=== PATIENT | male | born 1940 | race Caucasian/White ===

== ENCOUNTER → 2017-11-20 | Outpatient (CLI) | payer MEDICARE, OTHER ==
[~2017-11-20] MED LIST: PRESERVISION1 SGL PO
== END ==
LOC: COL.VAS 09:00
DX: M79.89 Other specified soft tissue disorders (principal); R93.8 Abnormal findings on diagnostic imaging of other specified body structures

== ENCOUNTER → 2019-03-04 | Outpatient (CLI) | payer MEDICARE, OTHER | LOC: COL.RAD 08:17 | DX: K82.8 Other specified diseases of gallbladder (principal); Z98.890 Other specified postprocedural states | CPT/HCPCS: Q9967 ==

== ENCOUNTER 2020-02-27 17:34 | Inpatient (IN) | payer MEDICARE, OTHER ==
[2020-02-27] VITALS (21 sets, daily range): BP systolic 127; BP diastolic 68; PULSE 73; TEMP 98.1; O2SAT 87–100
[~2020-02-27] VITALS: Ht 177.8 cm; Wt 84.0 kg
[2020-02-27 18:18] LABS: HEMATOCRIT 45.2 % (42.0-52.0); HEMOGLOBIN 15.2 g/dl (13.5-18.0); MEAN CELL VOLUME 95 fl (80.0-100.0); MEAN CORPUSCULAR HEMOGLOBIN 32 pg (27.0-31.0); MEAN CORPUSCULAR HGB CONC 34 g/dl (33.0-37.0); MEAN PLATELET VOLUME 9.6 fl (7.4-10.4); PLATELET COUNT 228 K/mm3 (130-400); RED BLOOD COUNT 4.77 M/mm3 (4.20-5.60); REDCELL DISTRIBUTION WIDTH-CV 13.2 % (11.5-14.5)
[2020-02-27 18:27] LABS: ALBUMIN 3.6 gm/dL (3.5-5.0); C-REACTIVE PROTEIN 5.5 mg/dL (0.0-0.9); CALCIUM 8.3 mg/dL (8.4-10.2); CREATININE, serum 1.44 (0.66-1.25); POTASSIUM 4.3 mmol/L (3.4-5.0); TOTAL PROTEIN 6.9 gm/dL (6.4-8.2)
[2020-02-27 18:35] LABS: BAND 15 % (0-10); LYMPHOCYTE 11 % (20.0-51.0); MYELOCYTE 5 % (0-0); NEUTROPHILS 65 % (42.0-75.2); NUCLEATED RED BLOOD CELL 1 (0-6)
[2020-02-27 18:36] LABS: PLATELET ESTIMATE NORMAL (NORMAL); TROPONIN-I 0.015 ng/mL (0.000-0.035)
[2020-02-27 18:49] LABS: ARTERIAL BLD GAS O2 SATURATION 92.8 % (92-100); ARTERIAL BLD GAS TCO2 CT 24.1; ARTERIAL BLOOD GAS BASE EXCESS -0.5 (-2-2); ARTERIAL BLOOD GAS PCO2 34.7 mmHg (35-45); ARTERIAL BLOOD GAS PO2 66.2 mmHg (80-100); ARTERIAL BLOOD GAS pH 7.44 (7.35-7.45)
[2020-02-27] MEDS ORDERED: LOPRESSOR 225 MG/TAB PO (19:01)
[2020-02-27] MEDS ORDERED: PROTONIX 40MG T40 MG PO (19:02)
[2020-02-27] MEDS ORDERED: ASPIRIN 81M81 MG/TA2 PO (19:03)
--- NOTE | 2020-02-27 20:08 | NUR ---
PT ARRIVED TO UNIT ACCOMPANIED BY ER NURSE AND WAS TRANSPORTED VIA STRETCHER. PT PLACED ON AIRVO AND ATTACHED TO CRM MONITOR ON ADMIT. DENIES SOA. ORIENTED TO UNIT AND POLICIES. WILL CONTINUE TO MONITOR.
[2020-02-27] MEDS ORDERED: DOXYCYCLINE HY100 MG PO (20:49)
[2020-02-27] MEDS ORDERED: PRESERVISION AREDS 2 PO (20:53)
[2020-02-27 21:20] LABS: INR 1.4 (0.8-3.0); PROTHROMBIN TIME 15.4 SECONDS (9.7-12.8)
[2020-02-27 21:23] LABS: PARTIAL THROMBOPLASTIN TIME 36.5 SECONDS (26.0-37.0)
[2020-02-27 22:17] LABS: ARTERIAL BLD GAS O2 SATURATION 87.3 % (92-100); ARTERIAL BLD GAS TCO2 CT 26.4; ARTERIAL BLOOD GAS BASE EXCESS 1.1 (-2-2); ARTERIAL BLOOD GAS HCO3 25.2 meq/L (22-26); ARTERIAL BLOOD GAS PCO2 38.6 mmHg (35-45); ARTERIAL BLOOD GAS PO2 53.2 mmHg (80-100); ARTERIAL BLOOD GAS pH 7.43 (7.35-7.45)
[2020-02-28] VITALS (710 sets, daily range): BP systolic 91–114; BP diastolic 50–65; PULSE 65–83; TEMP 97.7–98.7; O2SAT 65–100
[2020-02-28 01:43] LABS: ARTERIAL BLD GAS O2 SATURATION 98.8 % (92-100); ARTERIAL BLD GAS TCO2 CT 22.4; ARTERIAL BLOOD GAS BASE EXCESS -1.1 (-2-2); ARTERIAL BLOOD GAS HCO3 21.4 meq/L (22-26); ARTERIAL BLOOD GAS PCO2 30.2 mmHg (35-45); ARTERIAL BLOOD GAS PO2 132.1 mmHg (80-100); ARTERIAL BLOOD GAS pH 7.47 (7.35-7.45)
[2020-02-28 02:41] LABS: COLLECTION METHOD CLEAN CATCH
--- NOTE | 2020-02-28 02:41 | NUR ---
PT DNR/DNI DOUBLE VERIFIED BY THIS RN AND YUMIKO CHISHOLM AT BEDSIDE.
[2020-02-28 03:08] LABS: MUCOUS Present /lpf; PH 6 (5-8); SQUAMOUS EPITHELIAL 0-2 /hpf; URINE APPEARANCE Hazy; URINE BACTERIA None Seen /hpf; URINE BILIRUBIN Negative (NEGATIVE); URINE BLOOD Negative (NEGATIVE); URINE COLOR Amber; URINE GLUCOSE Negative (NEGATIVE); URINE KETONE Negative (NEGATIVE); URINE LEUKOCYTE ESTERASE Negative (NEGATIVE); URINE NITRATE Negative (NEGATIVE); URINE PROTEIN(semi-quant) 2+ (NEGATIVE); URINE RBC 0-2 /hpf
[2020-02-28 05:50] LABS: HEMATOCRIT 40.1 % (42.0-52.0); HEMOGLOBIN 13.5 g/dl (13.5-18.0); MEAN CELL VOLUME 96 fl (80.0-100.0); MEAN CORPUSCULAR HEMOGLOBIN 32 pg (27.0-31.0); MEAN CORPUSCULAR HGB CONC 34 g/dl (33.0-37.0); MEAN PLATELET VOLUME 9.9 fl (7.4-10.4); PLATELET COUNT 216 K/mm3 (130-400); REDCELL DISTRIBUTION WIDTH-CV 13.6 % (11.5-14.5)
[2020-02-28 05:51] LABS: CALCIUM 7.7 mg/dL (8.4-10.2); CREATININE, serum 1.2 (0.66-1.25); POTASSIUM 4.6 mmol/L (3.4-5.0)
[2020-02-28 06:10] LABS: ARTERIAL BLD GAS O2 SATURATION 95.2 % (92-100); ARTERIAL BLD GAS TCO2 CT 24.5; ARTERIAL BLOOD GAS BASE EXCESS 0.4 (-2-2); ARTERIAL BLOOD GAS HCO3 23.4 meq/L (22-26); ARTERIAL BLOOD GAS PCO2 33.8 mmHg (35-45); ARTERIAL BLOOD GAS PO2 74.3 mmHg (80-100); ARTERIAL BLOOD GAS pH 7.46 (7.35-7.45)
[2020-02-28 06:17] LABS: BAND 12 % (0-10); EOSINOPHIL 1 % (0-4); LYMPHOCYTE 72 % (20.0-51.0); NEUTROPHILS 1 % (42.0-75.2); PLATELET ESTIMATE NORMAL (NORMAL)
--- NOTE | 2020-02-28 10:12 | NUR ---
UPDATE GIVEN TO , JOYCE, AT THIS TIME.
--- NOTE | 2020-02-28 13:56 | NUR ---
The patient is positive for COVID. SW contacted the patient's , Melba (ph#[phone]), to discuss discharge plan. The patient lives in [place] with his . Melba reports that the patient is independent with ADLs and does not have any DME. The patient's PCP is Dr. Sumit [facility] and he receives his medications from [facility]. Melba reports no difficulties obtaining his meds. The patient does not have a DPOA-HC in EMR, but Melba states that the patient does have one completed and that she is the patient's DPOA-HC. The patient is on a bipap right now. SW to continue to follow.
--- NOTE | 2020-02-28 14:25 | NUR ---
Chaplain muro for patient while standing at outside the door.
--- NOTE | 2020-02-28 19:05 | NUR ---
Received report from YUMIKO Cooper.
--- NOTE | 2020-02-28 21:00 | NUR ---
Patient resting quietly in bed. Wearing AirVo, receiving 50L and 88% FiO2; tolerating well. Denies any pain or discomfort. Vitals within normal limits, although patient quickly desats to mid-high 80s with activity or talking. , Mario, phoned while in room and spoke with patient. No further needs noted at this time. Will continue to monitor.
[2020-02-29] VITALS (972 sets, daily range): BP systolic 106–126; BP diastolic 59–80; PULSE 63–87; TEMP 97–98.6; O2SAT 60–100
[2020-02-29 05:07] LABS: HEMATOCRIT 40.7 % (42.0-52.0); HEMOGLOBIN 13.6 g/dl (13.5-18.0); MEAN CELL VOLUME 95 fl (80.0-100.0); MEAN CORPUSCULAR HEMOGLOBIN 32 pg (27.0-31.0); MEAN CORPUSCULAR HGB CONC 33 g/dl (33.0-37.0); MEAN PLATELET VOLUME 9.8 fl (7.4-10.4); PLATELET COUNT 261 K/mm3 (130-400); REDCELL DISTRIBUTION WIDTH-CV 13.5 % (11.5-14.5)
[2020-02-29 05:27] LABS: CALCIUM 7.6 mg/dL (8.4-10.2); CREATININE, serum 0.95 (0.66-1.25); POTASSIUM 4.1 mmol/L (3.4-5.0)
[2020-02-29 05:49] LABS: BAND 4 % (0-10); LYMPHOCYTE 9 % (20.0-51.0); NEUTROPHILS 85 % (42.0-75.2); PLATELET ESTIMATE NORMAL (NORMAL)
--- NOTE | 2020-02-29 07:19 | NUR ---
REPORT GIVEN TO YUMIKO STALLINGS.
--- NOTE | 2020-02-29 08:00 | NUR ---
PATIENT PLACED ON AIRVO AT THIS TIME. HE IS ON 90% FIO2 AND 50 L FLOW.
--- NOTE | 2020-02-29 10:00 | NUR ---
PATIENT IS HELPED TO THE COMMODE, HIS SP02 DROPS TO 63%. HE IS REMINDED TO BREATHE THROUGH HIS NOSE, HE IS CURRENTLY MOUTH-BREATHING. HE IS SHORT OF BREATH WITH EXERTION.
--- NOTE | 2020-02-29 10:00 | NUR ---
PATIENT AIRVO DECREASED TO 85% FI02
--- NOTE | 2020-02-29 11:00 | NUR ---
UPDATE GIVEN TO LIZBETH JOHN.
--- NOTE | 2020-02-29 13:00 | NUR ---
UPDATE GIVEN TO , DORA
--- NOTE | 2020-02-29 16:00 | NUR ---
PATIENT FOUND OUT OF BED AND TANGLED IN MONITOR CORDS. HE IS TRYING TO USE COMMODE. HE IS REMINDED TO CALL FOR HELP SO HE DOESN'T FALL. HE STATES THAT HE CAN DO IT BY HIMSELF. I REMIND HIM THAT HE IS CURRENTLY TANGLED AND AT HIGH RISK FOR FALLING. HE AGREES TO CALL FOR HELP IN FUTURE.
--- NOTE | 2020-02-29 16:15 | NUR ---
WHILE PATIENT IS OUT OF BED, HIS SPO2 DROPS TO 70%S WITH EXERTION. HE IS REMINDED TO BREATHE THROUGH HIS NOSE, HE IS CURRENTLY BREATHING THROUGH HIS MOUTH.
--- NOTE | 2020-02-29 19:30 | NUR ---
REPORT GIVEN TO YUMIKO MAO
[2020-03-01] VITALS (792 sets, daily range): BP systolic 102–125; BP diastolic 57–71; PULSE 56–81; TEMP 97–97.5; O2SAT 50–100
[2020-03-01 05:41] LABS: HEMOGLOBIN 12.4 g/dl (13.5-18.0); MEAN CELL VOLUME 94 fl (80.0-100.0); MEAN CORPUSCULAR HEMOGLOBIN 32 pg (27.0-31.0); MEAN CORPUSCULAR HGB CONC 34 g/dl (33.0-37.0); PLATELET COUNT 282 K/mm3 (130-400); RED BLOOD COUNT 3.92 M/mm3 (4.20-5.60); REDCELL DISTRIBUTION WIDTH-CV 13.6 % (11.5-14.5)
[2020-03-01 05:57] LABS: ALBUMIN 2.7 gm/dL (3.5-5.0); BILIRUBIN,TOTAL 0.5 mg/dL (0.0-1.0); CALCIUM 7.8 mg/dL (8.4-10.2); CREATININE, serum 0.79 (0.66-1.25); POTASSIUM 4.3 mmol/L (3.4-5.0); TOTAL PROTEIN 5.5 gm/dL (6.4-8.2)
[2020-03-01 06:06] LABS: BAND 18 % (0-10); LYMPHOCYTE 3 % (20.0-51.0); NEUTROPHILS 71 % (42.0-75.2); PLATELET ESTIMATE NORMAL (NORMAL)
--- NOTE | 2020-03-01 10:02 | NUR ---
The patient remains on 60 liters of oxygen, via high flow cannula. SW asked the hospitalist for PT/OT to be ordered. SW to continue to follow.
--- NOTE | 2020-03-01 11:11 | NUR ---
DR. CAMARENA IN TO SEE PATIENT. UPDATED GIVEN TO , DORA.
--- NOTE | 2020-03-01 19:08 | NUR ---
REPORT GIVEN YUMIKO HKAN. PLAN OF CARE DISCUSSED. CARE TURNED OVER AT THIS TIME.
--- NOTE | 2020-03-01 19:45 | NUR ---
Assessment complete; patient reports shortness of breath with exertion but denies at rest. Denies any pain at this time. Patient is alert and oriented and does not appear to be in any distress during assessment. Discussed changing from Air-Vo to BIPAP when ready for bed; patient agreeable with this. Will continue to monitor; call light left within reach.
--- NOTE | 2020-03-01 21:15 | NUR ---
Patient de-saturating on Air vo to mid 80's. RT notified and currently at bedside. Placed on BIPAP at this time; 02 94% on BIPAP.
--- NOTE | 2020-03-01 23:20 | NUR ---
Patient called to request to take off the BIPAP for the night. Discussed with patient that we could try a break from the BIPAP but it would need to go back on during the night. Patient agreed to this. Stayed in room to monitor patient for several minutes. 02 86-89% on Air-V0 60L and 95%. Discussed with RT and will place oxymask at 15L over the Air-vo as patient tends to breath through the mouth. O2 90-92% at this time. Will continue to monitor.
[2020-03-02] VITALS (367 sets, daily range): BP systolic 113–147; BP diastolic 60–98; PULSE 62–92; TEMP 97.4–98.3; O2SAT 66–100
--- NOTE | 2020-03-02 00:16 | NUR ---
PT WAS ON AIRVO AND OXYMASK COMBINATION. SATURATIONS WERE DROPPING DOWN INTO THE LOW 80'S. THEREFORE PT WAS PLACED BACK ON BIPAP WHERE PT SATURATIONS WERE MAINTINING IN THE MID 80'S. THEREFORE, FI02 WAS INCREASED TO 100% WITH SATURATIONS STILL MAINTING IN THE 86-87%. THEREFORE SETTINGS WERE CHANGED BY TO 22/01 AND THE MASK WAS RE-AJUSTED AND SATURATIONS WERE IN THE LOW 90'S OF 90% TO 92%. PT DENIES BEING SHORT OF BREATH OR FEELING AIR HUNGRY. WILL CONTINUE TO MONIOR AND ASSES PT AND TITRATE BIPAP SETTINGS AND FI02 TOLERATED BY PATIENT.
--- NOTE | 2020-03-02 00:45 | NUR ---
02 low 80's on Air-vo with supplemental o2 via oxymask. RT at bedside and changed back to BIPAP. Patient denies increased work of breathing. RT increased settings to 16/11 and 100% FIO2. Will continue to monitor.
--- NOTE | 2020-03-02 06:00 | NUR ---
PATIENT REQUSTING TO TAKE A BREAK FROM THE BIPAP. 02 READING MID 80'S AFTER REMOVING BIPAP. PATIENT DENIES FEELING INCREASED WORK OF BREATHING AND REPORTS FEELING "BETTER" WITHOUT BIPAP. PROBE SWITCHED FROM FINGER TO FOREHEAD. READING 95-100% ON 60L 93% AIR-VO. WILL CONTINUE TO MONITOR.
[2020-03-02 06:20] LABS: HEMATOCRIT 40.5 % (42.0-52.0); HEMOGLOBIN 13.8 g/dl (13.5-18.0); MEAN CELL VOLUME 96 fl (80.0-100.0); MEAN CORPUSCULAR HEMOGLOBIN 33 pg (27.0-31.0); MEAN CORPUSCULAR HGB CONC 34 g/dl (33.0-37.0); PLATELET COUNT 318 K/mm3 (130-400); RED BLOOD COUNT 4.24 M/mm3 (4.20-5.60)
[2020-03-02 06:29] LABS: CALCIUM 8.2 mg/dL (8.4-10.2); CREATININE, serum 0.7 (0.66-1.25); POTASSIUM 4.3 mmol/L (3.4-5.0)
--- NOTE | 2020-03-02 07:15 | NUR ---
Report given to YUMIKO Chen. Patient care transfered.
[2020-03-02 07:23] LABS: BAND 13 % (0-10); LYMPHOCYTE 6 % (20.0-51.0); MYELOCYTE 1 % (0-0); NEUTROPHILS 78 % (42.0-75.2); PLATELET ESTIMATE NORMAL (NORMAL)
--- NOTE | 2020-03-02 14:00 | NUR ---
PATIENT ADMITED INTO ROOM 353 FROM ICU WITH RESPIRATORY FAILURE. PATIENT IS POSITIVE FOR COVID AND REQUIRING AIRVO DURING THE DAY AND BI-PAP AT HS. UPON ENTERING THE ROOM, PATIENT WAS SOA AND NOTED OXYGEN SAT OF 73% VIA OXY-MASK DURING ICU TRANSFER. PATIENT TOOK A WHILE TO RECOVER. SATS NOW AT 90% ON AIRVO 60L AFTER 15 MINUTES. A&P LUNG VALENCIA NOTED CRACKLES WITH DEMINISHED BASES. PATIENT IS A FORMER SMOKER. NEURO CHECKS Q4H. VITAL ARE NOW STABLE. TELE INPLACE WITH HR IN 90'S. DNR. PATIENT IS ON ISOLATION PRECAUTIONS FOR COVID. HEAD TO TOE ASSESSMENT COMPLETE. ORIENTED TO ROOM. CALL LIGHT IN REACH. PATIENT PROVIDED WATER AT BEDSIDE, WITH 1500 FLUID RESTRICTION NOTED. RIGHT UPPER ARM PICC LINE INPLACE AND TO INT. RED PORT DOES NOT FLUSH. GAVE CATHFLOW ORDERED IN ICU. WILL MONITOR
--- NOTE | 2020-03-02 14:28 | NUR ---
unable to flush pt's red port to right upper arm PICC. notified Dr. Candelario, cath anuj ordered. contacted pharmacy to have verified and states it will be approx 1hr before ready. pt transported to room 353 on 15L oxymask in airborn precautions with telemetry. reported to YUMIKO Jarrell at bedside of approx when cath anuj will be ready.
--- NOTE | 2020-03-03 00:45 | NUR ---
NURSE CALLED, PT WANTS TO TAKE BIPAP OFF. WHEN PT WAS SWITCHED TO AIRVO AT 85% AND 60 LPM HIS SPO2 WAS READING IN THE 60S. WHEN IT DID NOT QUICKLY IMPROVE HE WAS PLACED BACK ON THE BIPAP AT 18/12 AND 100%. IT TOOK APPROX. 20 MINUTES FOR HIS SPO2 TO RECOVER TO 91-92%. NURSE NOTIFIED.
[2020-03-03 03:46] VITALS: BP 113/62; PULSE 71; TEMP 98.3
[2020-03-03 06:53] LABS: HEMATOCRIT 39.9 % (42.0-52.0); HEMOGLOBIN 13.4 g/dl (13.5-18.0); MEAN CELL VOLUME 95 fl (80.0-100.0); MEAN CORPUSCULAR HEMOGLOBIN 32 pg (27.0-31.0); MEAN CORPUSCULAR HGB CONC 34 g/dl (33.0-37.0); PLATELET COUNT 323 K/mm3 (130-400); RED BLOOD COUNT 4.19 M/mm3 (4.20-5.60); REDCELL DISTRIBUTION WIDTH-CV 14.1 % (11.5-14.5)
[2020-03-03 08:04] VITALS: BP 123/66; PULSE 79; TEMP 97.9
[2020-03-03 08:46] LABS: BAND 2 % (0-10); LYMPHOCYTE 5 % (20.0-51.0); NEUTROPHILS 93 % (42.0-75.2); PLATELET ESTIMATE NORMAL (NORMAL)
--- NOTE | 2020-03-03 10:11 | NUR ---
PT SPO2 85% IN INCREASED TO 95% 24/11 SSPO2 89% RN BESIDE
--- NOTE | 2020-03-03 10:45 | NUR ---
Pt assessment completed and charted. Pt alert, currently on bipap. pt unable to be off bipap d/t significant desatting and lengthy recovery. This nurse called RT, pt satting 85% on bipap. RT adjusted settings, adjusted mask, pt up to 89-90% on 95% bipap. Dr. Comer notified and aware of situation. No new orders made. Pt has HEENA PICC, both ports flush well w/ blood return. Pt has significant bruising to Rt sd abdomen, possibly d/t previous lovenox shots. Pt has mild to no edema present to BLE. No further needs at this time.
[2020-03-03 11:43] VITALS: BP 143/57; PULSE 86; TEMP 98.4
[2020-03-03 16:37] VITALS: BP 121/62; PULSE 79; TEMP 98.4
[2020-03-03 17:19] LABS: ARTERIAL BLD GAS O2 SATURATION 97.6 % (92-100); ARTERIAL BLD GAS TCO2 CT 21.6; ARTERIAL BLOOD GAS BASE EXCESS -1.4 (-2-2); ARTERIAL BLOOD GAS HCO3 20.7 meq/L (22-26); ARTERIAL BLOOD GAS PCO2 28.5 mmHg (35-45); ARTERIAL BLOOD GAS PO2 95.6 mmHg (80-100); ARTERIAL BLOOD GAS pH 7.48 (7.35-7.45)
--- NOTE | 2020-03-03 18:19 | NUR ---
Pt sitting in bed, on bipap, abx administered per may. Dinner delivered, per Dr. banerjee and his note, pt ok to be on airvo and off bipap even if pt desats to 80s. RT up to floor, pt placed on airvo, pt ate dinner, desats to low 80s, high 70s. This nurse and RT in with patient during dinner. Pt placed back on bipap, 95%. Tolerating ok. No further needs expressed. ABGs drawn, WNL.
--- NOTE | 2020-03-03 19:01 | NUR ---
This nurse talked to Mario, pts and gave update on pt and POC. All questions answered, no further concerns.
[2020-03-03 19:23] VITALS: BP 114/63; PULSE 75; TEMP 97.8
[2020-03-03 23:43] VITALS: BP 114/69; PULSE 73; TEMP 97.8
[2020-03-04 04:01] VITALS: BP 119/63; PULSE 76; TEMP 97.5
--- NOTE | 2020-03-04 06:06 | NUR ---
NURSE CALLED BECAUSE PATIENT HAD DESATURATED AFTER GETTING UP. PT FOUND ON BIPAP WITH LARGE LEAK. THE TUBING HAD BECOME DISCONNECTED FROM THE HUMIDIFIER WHEN THE PT GOT OUT OF BED. TUBING RECONNECTED AND PT'S SATS AND APPEARANCE IMPROVED.
[2020-03-04 06:59] LABS: HEMATOCRIT 38.1 % (42.0-52.0); HEMOGLOBIN 12.5 g/dl (13.5-18.0); MEAN CELL VOLUME 96 fl (80.0-100.0); MEAN CORPUSCULAR HEMOGLOBIN 32 pg (27.0-31.0); MEAN CORPUSCULAR HGB CONC 33 g/dl (33.0-37.0); MEAN PLATELET VOLUME 10.1 fl (7.4-10.4); PLATELET COUNT 326 K/mm3 (130-400); RED BLOOD COUNT 3.96 M/mm3 (4.20-5.60); REDCELL DISTRIBUTION WIDTH-CV 14.2 % (11.5-14.5)
[2020-03-04 07:13] LABS: ALBUMIN 2.5 gm/dL (3.5-5.0); BILIRUBIN,TOTAL 0.9 mg/dL (0.0-1.0); CALCIUM 7.8 mg/dL (8.4-10.2); CREATININE, serum 0.79 (0.66-1.25); POTASSIUM 4.3 mmol/L (3.4-5.0); TOTAL PROTEIN 5.2 gm/dL (6.4-8.2)
[2020-03-04 08:02] VITALS: BP 124/67; PULSE 73; TEMP 97.3
[2020-03-04 09:29] LABS: BAND 10 % (0-10); LYMPHOCYTE 7 % (20.0-51.0); METAMYELOCYTE 3 % (0-0); NEUTROPHILS 79 % (42.0-75.2); PLATELET ESTIMATE NORMAL (NORMAL)
--- NOTE | 2020-03-04 09:38 | NUR ---
Pt assessment completed and charted. Pt A&O, sitting in bed. This nurse and RT in w/ patient for breathing tx. pt taken off bipap for breathing tx, to eat breakfast and take meds. Pt placed on airvo, 60L 92%. pt tolerating well, satting in the 90s. pt has very productive cough, green phlegm, small amount. pt denies pain, states he is "ok". UL LS clear, bases coarse. HRRR. Pusles strong bilaterally. HEENA PICC in place, both ports flush well w/ blood return. pt using urinal at bedside. No further concerns.
[2020-03-04 11:55] VITALS: BP 112/62; BP 99/71; PULSE 90; TEMP 98.3
[2020-03-04 16:24] VITALS: BP 108/62; PULSE 90; TEMP 97.6
--- NOTE | 2020-03-04 17:22 | NUR ---
Pt has done well today on airvo, significant productive cough earlier this morning after being taken off bipap. Cough has improved throughout day, denied need for cough medicine. Pt denies pain, dizziness, SOB. called for update earlier today, discussed POC. Per pt told her that he feel in the evening last night. No fall was reported during shift report. this nurse spoke with pt, he denied falling, stated that he "went to use the urinal, bipap and other things fell and came apart", which was all reported during shfit report. No other concerns.
--- NOTE | 2020-03-04 20:01 | NUR ---
PT LAYING IN BED AT THIS TIME. DECLINES NEEDS. PT IS ON AIRVO, AND PLAN IS TO GO ON TO BIPAP BETWEEN [id number]. ASSESSMENT COMPLETED. NO FURTHER CONCERNS AT THIS TIME. PT IS USING BEDSIDE URINAL AND USING CALL LIGHT THAT IS WITHIN REACH. BED ALARM IS ON AT THIS TIME.
[2020-03-04 20:03] VITALS: BP 117/56; PULSE 83; TEMP 98
[2020-03-04 23:40] VITALS: BP 116/68; PULSE 69; TEMP 97.9
[2020-03-05 04:12] VITALS: BP 130/63; PULSE 69; TEMP 97.6
--- NOTE | 2020-03-05 07:00 | NUR ---
Report received from Kateryna Faust. Pt requesting help with "air". Came and found pt nasal cannula was misplaced on face and 02 was not on, saturations at 85%. Cleared line, reapplied and remained wiht pt until saturations were up to 91%. Will continue to monitor.
[2020-03-05 07:44] LABS: HEMOGLOBIN 12.3 g/dl (13.5-18.0); MEAN CELL VOLUME 97 fl (80.0-100.0); MEAN CORPUSCULAR HEMOGLOBIN 33 pg (27.0-31.0); MEAN CORPUSCULAR HGB CONC 33 g/dl (33.0-37.0); MEAN PLATELET VOLUME 10.1 fl (7.4-10.4); PLATELET COUNT 332 K/mm3 (130-400); RED BLOOD COUNT 3.79 M/mm3 (4.20-5.60); REDCELL DISTRIBUTION WIDTH-CV 14.4 % (11.5-14.5)
[2020-03-05 07:49] LABS: CALCIUM 7.9 mg/dL (8.4-10.2); CREATININE, serum 0.81 (0.66-1.25); POTASSIUM 4.7 mmol/L (3.4-5.0)
[2020-03-05 07:57] LABS: HEMATOCRIT 36.9 % (42.0-52.0)
[2020-03-05 08:00] VITALS: BP 118/65; PULSE 84; TEMP 97.6
[2020-03-05 08:32] LABS: BAND 1 % (0-10); LYMPHOCYTE 3 % (20.0-51.0); NEUTROPHILS 90 % (42.0-75.2); PLATELET ESTIMATE NORMAL (NORMAL)
--- NOTE | 2020-03-05 09:32 | NUR ---
Assessment charted. Pt got up with PT for "first time in over a week" states he feels much better having moved but is very winded and tachycardic from effort. Denies pain. Breathing is labored from movement but wanted to sit on commode, BM charted. PICC to HEENA with good blood return and flushing. Pt having bed bath in recliner right now. Pt is extremely hard of hearing but otherwise agreeable.
[2020-03-05 12:00] VITALS: BP 102/58; PULSE 93; TEMP 97.8
--- NOTE | 2020-03-05 15:33 | NUR ---
[employer] collaborated with Hospitalist who advised patient may need referral to [facility]. SW faxed referral to Angeles, Clinical Liason at [facility] who advised that patient meets criteria and they would be able to accept once they have a bed available. SW contacted patient's , Lila to review discharge plan. Lila would be agreeable to discharge to [facility] as long as patient is agreeable. SW will continue to follow.
[2020-03-05 16:00] VITALS: BP 118/63; PULSE 92; TEMP 97.9
--- NOTE | 2020-03-05 16:50 | NUR ---
PATIENT WAS CALM IN BED,DENIES PAIN.NO CONCERNS RAISED AT THIS TIME.
--- NOTE | 2020-03-05 17:39 | NUR ---
Pt had a good day, up to chair and commode today. Able to titrate down per RT on Airvo. REsting in bed at this time, denies needs, will give report to nightshift nurse who will resume care.
[2020-03-05 19:44] VITALS: BP 96/62; PULSE 86; TEMP 97.7
--- NOTE | 2020-03-05 20:02 | NUR ---
PT RESTING IN BED AT THIS TIME. NO CONCERNS AT THIS TIME. REPORT FROM YUMIKO ROSAS.
[2020-03-06] VITALS (7 sets, daily range): BP systolic 103–147; BP diastolic 51–81; PULSE 74–120; TEMP 97.6–100.3
[2020-03-06 06:00] LABS: HEMATOCRIT 37.9 % (42.0-52.0); HEMOGLOBIN 12.5 g/dl (13.5-18.0); MEAN CELL VOLUME 97 fl (80.0-100.0); MEAN CORPUSCULAR HEMOGLOBIN 32 pg (27.0-31.0); MEAN CORPUSCULAR HGB CONC 33 g/dl (33.0-37.0); MEAN PLATELET VOLUME 9.8 fl (7.4-10.4); PLATELET COUNT 405 K/mm3 (130-400); RED BLOOD COUNT 3.92 M/mm3 (4.20-5.60); REDCELL DISTRIBUTION WIDTH-CV 14.6 % (11.5-14.5)
[2020-03-06 06:09] LABS: CALCIUM 7.6 mg/dL (8.4-10.2); CREATININE, serum 0.77 (0.66-1.25); POTASSIUM 4.1 mmol/L (3.4-5.0)
[2020-03-06 06:57] LABS: BAND 5 % (0-10); EOSINOPHIL 1 % (0-4); LYMPHOCYTE 4 % (20.0-51.0)
[2020-03-06 06:58] LABS: NEUTROPHILS 89 % (42.0-75.2)
[2020-03-06 06:59] LABS: PLATELET ESTIMATE INCREASED (NORMAL)
--- NOTE | 2020-03-06 09:07 | NUR ---
PATIENT DOWN TO 70% FIO2 FROM 80%FIO2, SPO2 93 WHEN NOT COUGHING.
--- NOTE | 2020-03-06 16:47 | NUR ---
C[employer] collaborated with Angeles at [facility] who advised they will have a bed available for patient tomorrow. Angeles inquired if we could tentatively schedule for 1000. PAYAM contacted Hospitalist who advised patient was switched to bipap and that we could tentatively plan for tomorrow. PAYAM updated Angeles that patient was switched to bipap. PAYAM contacted [facility] to tentatively schedule for 1000. PAYAM updated patient's , Lila who is in agreement with discharge to [facility]. PAYAM will continue to follow.
--- NOTE | 2020-03-06 19:19 | NUR ---
1115: This nurse in w/ pt, pt sitting in bed, pt desatting in the upper 70s mid 80s. Pt appears very anxious/restless, tachypneic. This nurse notified RT, pt placed back on bipap, Dr. Rodriguez notified. One time dose ativan ordered and administered per may. Pt encouraged to take slow deep breaths. Pt monitored on bipap, sats increased to upper 80s to 90%. Pt A&O. pt states he had some back, readjusted in bed, sat up, pt in tripod position breathing. Pt eventually became calmer, RR still increased. New mask for bipap provided, better fitted, pt tolerating ok. HEENA PICC in place, both ports flush w/ good blood return. Pt tolerated some breakfast. Pt slept through lunch and refused dinner. Attempted to place pt on airvo for dinner, pt had liquids and then refused dinner, pt not tolerating airvo. Pt placed back on bipap, satting upper 88-90%. Recovery took >15min. No other concerns at this time. This nurse talked w/ pt , updated, all questions answered.
[2020-03-07 00:19] VITALS: BP 114/58; PULSE 82; TEMP 97.7
[2020-03-07 04:14] VITALS: BP 125/61; PULSE 74; TEMP 98.4
[2020-03-07 06:54] LABS: HEMATOCRIT 39.2 % (42.0-52.0); HEMOGLOBIN 12.9 g/dl (13.5-18.0); MEAN CELL VOLUME 97 fl (80.0-100.0); MEAN CORPUSCULAR HEMOGLOBIN 32 pg (27.0-31.0); MEAN CORPUSCULAR HGB CONC 33 g/dl (33.0-37.0); MEAN PLATELET VOLUME 9.8 fl (7.4-10.4); PLATELET COUNT 357 K/mm3 (130-400); RED BLOOD COUNT 4.03 M/mm3 (4.20-5.60); REDCELL DISTRIBUTION WIDTH-CV 14.7 % (11.5-14.5)
[2020-03-07 07:08] LABS: CALCIUM 7.9 mg/dL (8.4-10.2); CREATININE, serum 1.32 (0.66-1.25); POTASSIUM 4.4 mmol/L (3.4-5.0)
[2020-03-07 07:27] LABS: BAND 5 % (0-10); LYMPHOCYTE 2 % (20.0-51.0); METAMYELOCYTE 2 % (0-0); NEUTROPHILS 91 % (42.0-75.2); PLATELET ESTIMATE NORMAL (NORMAL)
[2020-03-07 08:09] VITALS: BP 143/65; PULSE 85; TEMP 98.3
--- NOTE | 2020-03-07 08:45 | NUR ---
Pt assessment complete. Pt sitting up in bed upon entry, he is alert and oriented. Currently on the bipap. O2 sat ~75% does get up to ~87% intermittently. Pt took off bipap mask to take medications, did have a coughing fit when taking pills. O2 sat dropped significantly to ~40%, but patient did recover. He has no complaints of pain. Unable to eat d/t inability to maintain oxygen level. POC of possibly transferring discussed with patient and . No needs at this time. Call light within reach.
[2020-03-07 13:21] VITALS: BP 120/50; PULSE 113; TEMP 98.7
--- NOTE | 2020-03-07 15:27 | NUR ---
[employer] collaborated with Hospitalist who advised patient is not doing well on bipap and does not feel patient is stable for transfer at this time. Palliative consult was placed. PAYAM provided update to Angeles at [facility] and also contacted patient's , Mario to update that patient will not transfer today. Mario states she talked with Hospitalist and is working on preparing her family for the possibility patient will not make it. Later in the day, YUMIKO Flores contacted PAYAM to advise patient is interested in [facility] and also inquired about the maximum amount of oxygen patient can be discharged on. PAYAM contacted Danuta at [facility] and faxed referral. Maximum would be 10 liters and PAYAM provided this update to Sandra. Patient's is here to visit with patient. PAYAM will continue to follow.
--- NOTE | 2020-03-07 15:30 | NUR ---
Pt expressed that he is "ready for it to be over", and requested that oxygen be taken off. Verified with patient that he would like both Nasal cannula and oxymask taken off patient agreed. IV Ativan administered prior to. Pt's at bedside. Followed isolation precautions.
--- NOTE | 2020-03-07 17:45 | NUR ---
Decision to persue comfort care made by patient and his . Pt's able to come in and stay with patient. Pt zoomed with family members. At approximately ~1530 pt stated he was ready to take off oxygen. Gave Ativan prior to removing, patient did not want to remove only oxymask at the time. Requested to remove all oxygen devices. After pt uncomfortable and gasping at times, so dose of Morphine given. At 1630 patient with at bedside. Pt cleaned up and taken by the home.
== END 2020-03-07 18:00 | disposition expired | DRG 177 ==
LOC: COL.ER 17:34 → ICU 19:05 → MEDICAL 03-02 14:36
PROVIDERS: Family Medicine; Hospitalist; Nurse Practitioner Family; Nurse Practitioner Primary Care; Physician Assistant; Student in an Organized Health Care Education/Training Program; ADMIT Internal Medicine
PROC: 02HV33Z Insertion of Infusion Device into Superior Vena Cava, Percutaneous Approach (ICD-10-PCS; principal; 2020-02-28)
DX: U07.1 COVID-19 (principal); J96.01 Acute respiratory failure with hypoxia; J12.89 Other viral pneumonia; N17.9 Acute kidney failure, unspecified; E87.2 Acidosis; E87.1 Hypo-osmolality and hyponatremia; G93.49 Other encephalopathy; E87.8 Other disorders of electrolyte and fluid balance, not elsewhere classified; K21.9 Gastro-esophageal reflux disease without esophagitis; H35.30 Unspecified macular degeneration; N18.9 Chronic kidney disease, unspecified; R74.01 Elevation of levels of liver transaminase levels; Z66 Do not resuscitate; Z85.828 Personal history of other malignant neoplasm of skin; Z79.82 Long term (current) use of aspirin; Z87.891 Personal history of nicotine dependence
CPT/HCPCS: 99223-AI; 99232-AI; 99233-AI; 99239; C1751; J0692; J0696; J1100; J1650; J2060; J2270; J2543; J2997; J3370; J7030; J7050; J7120